=== PATIENT | female | born 1990 | race Caucasian/White ===

== ENCOUNTER → 2016-04-20 | Outpatient (REF) | payer OTHER ==
[~2016-04-20] MED LIST: ACET50TA PO; IBUP-1114 PO; PRENTAB9 PO
== END ==
LOC: M LAB REF 17:03
PROVIDERS: ATTEND Obstetrics & Gynecology
DX: Z12.4 Encounter for screening for malignant neoplasm of cervix (principal)

== ENCOUNTER → 2017-02-17 | Outpatient (REF) | payer BC | LOC: M LAB REF 13:18 | PROVIDERS: ATTEND Physician Assistant | DX: J02.9 Acute pharyngitis, unspecified (principal) ==

== ENCOUNTER → 2017-05-04 | Outpatient (REF) | payer BC | LOC: M LAB REF 16:18 | DX: J11.1 Influenza due to unidentified influenza virus with other respiratory manifestations (principal) ==

== ENCOUNTER → 2017-10-24 | Outpatient (CLI) | payer BC ==
[2017-10-24 18:24] LABS: BASO % 0.4 % (0.0-1.0); EOS # 0.1 10^3/uL (0.0-0.50); EOS % 1.2 % (0.0-3.0); HEMATOCRIT 37.6 % (36.0-47.0); HEMOGLOBIN 12.4 g/dl (12.0-15.5); IMMATURE GRANULOCYTE % 0.4 % (0-3.0); LYMPH # 2.5 10^3/uL (1.5-6.5); LYMPH % 25.7 % (24.0-44.0); MEAN CORPUSCULAR HEMOGLOBIN 29.8 pg (27.0-33.0); MEAN CORPUSCULAR VOLUME 90.4 fl (80.0-96.0); MONO # 0.9 10^3/uL (0.0-0.8); MONO % 9.6 % (0.0-5.0); NEUTROPHILS # 6.2 10^3/uL (1.8-7.7); NEUTROPHILS % 62.7 % (36.0-66.0); PLATELET COUNT, AUTOMATED 276 10^3/uL (150-450); RED BLOOD COUNT 4.16 10^6/uL (4.00-5.40); RED CELL DISTRIBUTION WIDTH 13.1 % (11.5-14.5); WHITE BLOOD COUNT 9.8 10^3/uL (4.0-10.0)
[2017-10-24 19:46] LABS: CHLAMYDIA DNA AMPLIFICATION NEGATIVE (NEGATIVE); GC DNA AMPLIFICATION NEGATIVE (NEGATIVE)
[2017-10-25 09:19] LABS: RUBELLA IgG QUALITATIVE IMMUNE (IMMUNE)
[2017-10-25 09:20] LABS: HBsAg Prenatal NEGATIVE (NEGATIVE)
[2017-10-25 09:46] LABS: HEPATITIS C VIRUS ABY INDEX 0.1 INDEX (<0.8)
[2017-10-25 11:06] LABS: HIV 1&2 SCREEN CENTAUR NEGATIVE (NEGATIVE)
== END ==
LOC: M SMT 15:15
DX: Z36.89 Encounter for other specified antenatal screening (principal); Z3A.08 8 weeks gestation of pregnancy
CPT/HCPCS: 86762

== ENCOUNTER → 2018-01-04 | Outpatient (CLI) | payer BC | LOC: M RAD 10:37 | DX: Z36.9 Encounter for antenatal screening, unspecified (principal); Z3A.18 18 weeks gestation of pregnancy | CPT/HCPCS: 76811 ==

== ENCOUNTER → 2018-01-25 | Outpatient (CLI) | payer BC, MEDICAID | LOC: M RAD 12:18 | DX: Z34.82 Encounter for supervision of other normal pregnancy, second trimester (principal); Z3A.21 21 weeks gestation of pregnancy | CPT/HCPCS: 76816 ==

== ENCOUNTER → 2018-05-04 | Outpatient (REF) | payer BC, MEDICAID ==
[~2018-05-04] MED LIST changes: -ACET50TA PO; +MAPA500T2 PO
== END ==
LOC: M LAB REF 17:05
PROVIDERS: ATTEND Advanced Practice Midwife
DX: Z34.83 Encounter for supervision of other normal pregnancy, third trimester (principal); Z3A.00 Weeks of gestation of pregnancy not specified

== ENCOUNTER → 2018-05-11 | Outpatient (CLI) | payer BC, MEDICAID | LOC: M SMT 14:38 | PROVIDERS: ATTEND Advanced Practice Midwife | DX: Z36.89 Encounter for other specified antenatal screening (principal) ==

== ENCOUNTER → 2018-05-25 | Outpatient (CLI) | payer BC, MEDICAID ==
[~2018-05-25] MED LIST changes: +IBUP80TA PO; +OMEP10CASR PO; +RANI15TA PO; +UNIS25TA3 PO
--- NOTE | 2018-05-25 19:12 | REP ---
FOLLOWUP OB ULTRASOUND: 05/25/2018. Clinical history: Size date discrepancy, third trimester. Comparison: 01/25/2018. Findings: By her initial ultrasound she would be 39 weeks with EDC 06/01/2018. Single intrauterine gestation is in vertex position with a posterior grade 2 placenta without previa or abruption. Subjectively amniotic fluid volume is normal with an index of 12.4 cm with a normal range 7.2 - 22.6. Largest fluid pocket is 4.8 cm. Mid cord umbilical artery Doppler shows S/D ratio 2.36 with normal forward diastolic flow, all normal. Resistive index is 0.58. biometry: BPD 9.4 cm 38 weeks HC 33.5 cm 38 weeks 3 days AC 37.1 cm 41 weeks FL 7.7 cm 39 weeks 3 days Technologist has used only the HC and FL for composite criteria, 38 weeks 1 day with EDC 06/07/2018. Estimated weight 3940 grams or 8 pounds 10 ounces 78th percentile for dating based on initial exam. This is normal interval growth. All measurement ratios are normal. Heart rate 141 and regular. Cranial vault, diaphragm, left-sided stomach bubble, kidneys and bladder and genitalia were seen and unremarkable. Impression: 1. Single intrauterine gestation in vertex presentation with cervix obscured by shadowing from the skull. There is a posterior grade 2 placenta without previa and visually normal amniotic fluid volume and EDWIN 12.4 2. Heart rate 141 and regular, umbilical cord Doppler was unremarkable and size and dates show normal interval growth as described above. Electronically Signed by Keanu Bui MD 05/26/2018 11:59 A
== END ==
LOC: M SMT 10:53
PROVIDERS: ATTEND Advanced Practice Midwife
DX: O26.843 Uterine size-date discrepancy, third trimester (principal); Z3A.38 38 weeks gestation of pregnancy

== ENCOUNTER 2018-05-26 11:45 | Inpatient (IN) | payer BC, MEDICAID ==
[2018-05-26] VITALS (17 sets, daily range): BP systolic 113–149; BP diastolic 65–85
[~2018-05-26] VITALS: Ht 167.6 cm; Wt 102.8 kg
[~2018-05-26 11:45] MED LIST changes: -IBUP80TA PO; -OMEP10CASR PO; -RANI15TA PO; -UNIS25TA3 PO
[2018-05-26] MEDS ORDERED: UNIS25TA3 PO (12:02)
[2018-05-26] MEDS ORDERED: OMEP10CASR PO (12:02)
[2018-05-26] MEDS ORDERED: RANI15TA PO (12:02)
--- NOTE | 2018-05-26 13:09 | NUR ---
L&D H&P HPI: 28 year old at 39+0 weeks estimated gestation. Expected date of confinement: 06/02/2018. dated by LMP consistent with first trimester ultrasound. Presents today for elective induction of labor at 39+0 weeks. Denies vaginal bleeding, loss of fluid, or uterine contractions. Reports regular movement. Obstetric history notable for a difficult second stage of labor, failed operative vaginal delivery via vacuum assistance, followed by with shoulder dystocia at 41 weeks (8 lbs. 10 oz.) labs: Blood type O+, antibody screen negative, rubella immune, VDRL nonreactive , hepatitis B surface antigen negative, HIV negative, hepatitis C antibody negative, GC/CT negative, aneuploidy/maternal serum screening: declined, 1 hour glucose challenge test: 133, 3 hour glucose tolerance test: 94,153,140,122. GBS negative Vaccinations: Tdap 04/19/18 Radiology/OB US: no anomalies or placental abnormalities detected. 05/25/2018, EFW 3940 g 8 lbs. 10 oz. cephalic presentation. 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 10 oz., . See above HPI Social history: No tobacco, alcohol or drug use Family history:. Diabetes, thyroid disease Objective Vitals: Normotensive, normal heart rate, afebrile Heart: Regular rate and rhythm. No murmurs, rubs or gallops. Lungs: Clear to auscultation bilaterally. No wheezes, crackles, rales or rhonchi. Abdomen: Uterine fundal height consistent with dates. No guarding or rebound tenderness. Extremities: No clubbing, cyanosis or edema. Normal deep tendon reflexes. Sterile vaginal exam: 1 cm, 50 %effacement, -3 station, cephalic, intact External monitoring: heart rate category 1 Tocodynamometer: contractions occurring intermittently Assessment/Plan 28 year old at 39+0 weeks gestation. Diagnosis: Elective induction of labor. Full-term gestation, history of shoulder dystocia. Reassuring and maternal status. -Admit to labor and delivery with routine labs and orders -External monitoring and tocodynamometer -Pediatrics and anesthesia consultations as needed. -Risks of elective induction of labor reviewed -Risks of recurrent shoulder dystocia reviewed -Plan is for IOL / . Start with cervical ripening via misoprostol. Dr. Martinez Lazcano, DO, FACOG
[2018-05-26 13:43] LABS: HEMATOCRIT 31.5 % (36.0-47.0); HEMOGLOBIN 9.8 g/dl (12.0-15.5); MEAN CORPUSCULAR HEMOGLOBIN 26.8 pg (27.0-33.0); MEAN CORPUSCULAR HGB CONC 31.1 g/dl (32.0-36.5); MEAN CORPUSCULAR VOLUME 86.1 fl (80.0-96.0); PLATELET COUNT, AUTOMATED 291 10^3/uL (150-450); RED BLOOD COUNT 3.66 10^6/uL (4.00-5.40); WHITE BLOOD COUNT 9.9 10^3/uL (4.0-10.0)
[2018-05-26] MEDS ORDERED: LACTATED RINGER'S 1000 ML IV STA (13:52)
[2018-05-26] MEDS: LR 1,000 ML IV SCH ×2 (14:16→22:55)
[2018-05-26] MEDS: miSOPROStol 50 MCG 1/2 TAB (S0191) SL SCH ×2 (14:16→19:30)
[2018-05-26] MEDS ORDERED: OXYTOCIN DRIP 30 UNITS in APPROPRIATE DILUENT 1 EA IV SCH (19:30)
--- NOTE | 2018-05-26 19:30 | NUR ---
Labor progress note Subjective: Patient starting to feel more uncomfortable with contractions. Contractions are occurring more frequently. Denies any loss of fluid or vaginal bleeding. No complaints of headache, visual changes, nausea, vomiting, shortness of breath or chest pain. Objective: Vitals: Normotensive, normal heart rate, afebrile Sterile vaginal exam:, 1-2 cm, 75% effaced, -3 station, cephalic presentation, intact membranes External monitoring:. heart rate category 1 Tocodynamometer: Contractions are every 2-3 minutes Assessment / Plan: Reassuring maternal and status. -Continue induction with IV Pitocin, low-dose protocol -Repeat sterile vaginal exam in approximately 4 hours or sooner as needed -Will consider Cook balloon if unchanged after this period of time Shellie Jacome.O., F.A.C.O.G
[2018-05-27] VITALS (48 sets, daily range): BP systolic 93–137; BP diastolic 51–82
[2018-05-27] MEDS ORDERED: FENTANYL 2MCG/ML ROPIVACAINE 0.2% IN 0.9% NACL 100ML IVBAG As Ordered ONE (00:24)
[2018-05-27] MEDS: FENTANYL/ROPIVACAINE/NACL BAG 100 ML EPIDURAL SCH ×2 (01:30→09:06)
[2018-05-27] MEDS: FAMOTIDINE 20 MG TAB PO SCH ×2 (02:13→09:07)
[2018-05-27] MEDS ORDERED: diphenhydrAMINE INJ 50MG/ML VIAL (J1200) IV PRN (02:30)
[2018-05-27] MEDS ORDERED: REFRIGERATOR IV KEYS XX PRN (02:30)
[2018-05-27] MEDS ORDERED: EPIDURAL COMMENT XX SCH (02:30)
[2018-05-27] MEDS ORDERED: NALOXONE INJ 0.4 MG/1 ML VIAL (J2310) IV PRN (02:30)
[2018-05-27] MEDS ORDERED: ONDANSETRON 4MG/2ML VIAL (J2405) IV PRN ×2 (02:30→16:15)
[2018-05-27] MEDS ORDERED: EPIDURAL/PCA KEYS XX PRN (02:30)
[2018-05-27] MEDS ORDERED: ePHEDrine SULFATE 25 MG/5 ML(5MG/ML) SYRINGE IV PRN (02:30)
--- NOTE | 2018-05-27 03:44 | NUR ---
Labor progress note Subjective: Patient comfortable with epidural. Denies any loss of fluid or vaginal bleeding. No complaints of headache, visual changes, nausea, vomiting, shortness of breath or chest pain. Objective: Vitals: Normotensive, normal heart rate, afebrile Sterile vaginal exam:, 1-2 cm, 75% effaced, -3 station, cephalic presentation, intact membranes Cook balloon placed (60ml/40ml) External monitoring:. heart rate category 1 Tocodynamometer: Contractions are every 2-3 minutes; pit at 18mU/min Assessment / Plan: Reassuring maternal and status. -Continue induction with IV Pitocin per protocol. -Repeat sterile vaginal exam in approximately 4-6 hours or sooner as needed Jett Lazcano,
[2018-05-27] MEDS: LR 1,000 ML IV SCH ×2 (05:13→12:01)
--- NOTE | 2018-05-27 10:03 | NUR ---
Labor progress note Subjective: Patient comfortable with epidural. Cook balloon spontaneously fell out around 0930. +bloody show, but denies any loss of fluid or heavy vaginal bleeding. No complaints of headache, visual changes, nausea, vomiting, shortness of breath or chest pain. Objective: Vitals: Normotensive, normal heart rate, afebrile Sterile vaginal exam:, 6 cm, 90% effaced, -1 station, cephalic presentation, intact membranes External monitoring:. heart rate category 1 Tocodynamometer: Contractions are every 2-3 minutes; pit at 20 mU/min Assessment / Plan: Active labor. Reassuring maternal and status. -Continue induction with IV Pitocin per protocol. -Repeat sterile vaginal exam in approximately 2-4 hours or sooner as needed -AROM if unchanged after this timeframe. Jett Lazcano, DO
--- NOTE | 2018-05-27 12:41 | NUR ---
Labor progress note Subjective: Patient still overall comfortable with epidural but she's starting to feel rectovaginal pressure. +bloody show, but denies any loss of fluid or heavy vaginal bleeding. No complaints of headache, visual changes, nausea, vomiting, shortness of breath or chest pain. Objective: Vitals: Normotensive, normal heart rate, afebrile Sterile vaginal exam:, 8-9 cm, 100% effaced, 0 station, cephalic presentation AROM, clear External monitoring:. heart rate category 1, short periods of Cat II with intermittent variable decelerations Tocodynamometer: Contractions are every 2-3 minutes; pit at 20 mU/min (shut off) Assessment / Plan: Active labor, approaching second stage of labor. Normal labor progression. Reassuring maternal and status. -Keep Pitocin off for now -Repeat sterile vaginal exam in approximately 1-2 hours or sooner as needed Jett Lazcano, DO
[2018-05-27] MEDS ORDERED: OXYTOCIN 30 UNITS IN 0.9% NaCl 500ML IV BAG (J2590) As Ordered ONE (13:09)
--- NOTE | 2018-05-27 16:09 | NUR ---
Delivery note Spontaneous vaginal delivery Estimated gestational age at delivery: 39+1 weeks The active phase and second stage of labor progressed in normal fashion with epidural anesthesia. Patient received Pitocin labor augmentation. The head delivered left occiput anterior and restituted left occiput transverse. No nuchal cord was noted. The anterior shoulder delivered with gentle downward guidance and the remainder of the body delivered with ease. Cord clamping was delayed for approximately 1 minute after delivery. After doubly clamping the cord, I cut the cord. The was placed on the patient's chest for immediate bonding. Duson data: Apgars 8 and 9. weight 3990 grams 8 pounds, 13 ounces. Time of delivery: 1538. Sex: Female. The third stage of labor was actively managed with a bolus of IV Pitocin (30 units in 500 mL of normal saline). The placenta delivered completely intact with no missing cotyledons at 1543. A three-vessel cord with a central insertion was noted. After delivery of the placenta, the uterine fundus was approximately 2 cm below the umbilicus and firm. IV Pitocin was continued to maintain uterine tone. A normal, low level of uterine bleeding was noted. The cervix, vagina, vulva and perineum were inspected for lacerations. A second degree laceration was noted. This was repaired with 3-0 Vicryl in typical fashion. Excellent hemostasis was noted. Estimated blood loss: 300ml. All sponges, needles, and instruments were accounted for per VEHICLE COST ENGINEER department protocol. Martinez Lazcano D.O., F.Brent.Adarsh.
[2018-05-27] MEDS ORDERED: OXYTOCIN DRIP 30 UNITS in APPROPRIATE DILUENT 1 EA IV SCH (16:15)
[2018-05-27] MEDS ORDERED: MEASLES,MUMPS,RUBELLA VACCINE INJ (MMR-II) (90707) SC SCH (16:15)
[2018-05-27] MEDS ORDERED: DOCUSATE SODIUM 100 MG CAP PO PRN (16:15)
[2018-05-27] MEDS ORDERED: DIBUCAINE 1% OINTMENT 30GM TOP PRN (16:15)
[2018-05-27] MEDS ORDERED: RHOGAM 300 MCG (1500 IU) INJ (J2790) IM SCH (16:15)
[2018-05-27] MEDS ORDERED: PROMETHAZINE 25 MG TAB PO PRN (16:15)
[2018-05-27] MEDS ORDERED: LR 1,000 ML IV SCH (16:15)
[2018-05-27] MEDS ORDERED: IBUP80TA PO (16:26)
[2018-05-27] MEDS: IBUPROFEN 800 MG TAB PO PRN (17:38)
[2018-05-27] MEDS ORDERED: INFLUENZA QUADRIVALENT PF VACCINE 0.5ML SYRINGE (90686) IM PRN (18:45)
[2018-05-27] MEDS: ACETAMINOPHEN 500 MG TAB PO PRN (19:28)
[2018-05-28] MEDS: IBUPROFEN 800 MG TAB PO PRN ×2 (01:06→13:17)
[2018-05-28 06:05] VITALS: BP 105/60
[2018-05-28] MEDS: ACETAMINOPHEN 500 MG TAB PO PRN (07:44)
[2018-05-28] MEDS ORDERED: PRENATAL VITAMINS CHEWABLE TABLET PO SCH (09:00)
== END 2018-05-28 14:15 | disposition home or self-care (01) | DRG 560 ==
LOC: M LDI 11:45 → M OBS 05-27 17:47
PROVIDERS: ADMIT Obstetrics & Gynecology; ATTEND Obstetrics & Gynecology
PROC: 10E0XZZ Delivery of Products of Conception, External Approach (ICD-10-PCS; principal; 2018-05-27)
PROC: 0KQM0ZZ Repair Perineum Muscle, Open Approach (ICD-10-PCS; 2018-05-27)
DX: O70.1 Second degree perineal laceration during delivery (principal); Z37.0 Single live birth; Z3A.39 39 weeks gestation of pregnancy

== ENCOUNTER → 2018-08-21 | Outpatient (REF) | payer BC, MEDICAID ==
[~2018-08-21] MED LIST changes: +IBUP80TA PO; +OMEP10CASR PO; +RANI15TA PO; +UNIS25TA3 PO
== END ==
LOC: M LAB REF 13:21
PROVIDERS: ATTEND Obstetrics & Gynecology
DX: Z12.4 Encounter for screening for malignant neoplasm of cervix (principal)

== ENCOUNTER → 2018-08-27 | Outpatient (CLI) | payer BC, MEDICAID ==
[~2018-08-27] MED LIST changes: +MIRE1IUD IU
== END ==
LOC: M SMT 08:48
PROVIDERS: ATTEND Obstetrics & Gynecology
DX: Z13.79 Encounter for other screening for genetic and chromosomal anomalies (principal)

== ENCOUNTER 2018-08-28 03:59 | Emergency (ER) | payer BC, MEDICAID ==
[~2018-08-28] VITALS: Ht 167.6 cm; Wt 90.9 kg
[2018-08-28 03:59] VITALS: BP 141/77
[~2018-08-28 03:59] MED LIST changes: -MIRE1IUD IU
[2018-08-28] MEDS ORDERED: MIRE1IUD IU (04:07)
[2018-08-28 04:50] LABS: BASO # 0.1 10^3/uL (0.0-0.2); BASO % 0.8 % (0.0-1.0); EOS # 0.3 10^3/uL (0.0-0.50); EOS % 4.1 % (0.0-3.0); HEMATOCRIT 33.9 % (36.0-47.0); HEMOGLOBIN 10.8 g/dl (12.0-15.5); LYMPH # 2.7 10^3/uL (1.5-6.5); LYMPH % 40.7 % (24.0-44.0); MEAN CORPUSCULAR HEMOGLOBIN 27.8 pg (27.0-33.0); MEAN CORPUSCULAR HGB CONC 31.9 g/dl (32.0-36.5); MEAN CORPUSCULAR VOLUME 87.1 fl (80.0-96.0); MONO # 0.6 10^3/uL (0.0-0.8); MONO % 9.1 % (0.0-5.0); NEUTROPHILS # 2.9 10^3/uL (1.8-7.7); NEUTROPHILS % 45.1 % (36.0-66.0); PLATELET COUNT, AUTOMATED 230 10^3/uL (150-450); RED BLOOD COUNT 3.89 10^6/uL (4.00-5.40); WHITE BLOOD COUNT 6.5 10^3/uL (4.0-10.0)
[2018-08-28 04:59] LABS: INR 0.97
[2018-08-28 05:20] LABS: ALBUMIN 3.5 GM/DL (3.2-5.2); ALT/SGPT 31 U/L (12-78); BILIRUBIN,TOTAL 0.5 MG/DL (0.2-1.0); BLOOD UREA NITROGEN 14 MG/DL (7-18); CALCIUM LEVEL 8.5 MG/DL (8.5-10.1); CARBON DIOXIDE LEVEL 27 MEQ/L (21-32); CHLORIDE LEVEL 109 MEQ/L (98-107); CK-MB VALUE MASS < 1.0 NG/ML (<3.6); CPK CREATINE PHOSPHOKINASE 70 U/L (26-192); CREATININE FOR GFR 0.89 MG/DL (0.55-1.30); GLOMERULAR FILTRATION RATE > 60.0 (>60); GLUCOSE, FASTING 101 MG/DL (70-100); LIPASE 139 U/L (73-393); MB/CK RELATIVE INDEX 1.43 (< OR =4); POTASSIUM SERUM 4.2 MEQ/L (3.5-5.1); SODIUM LEVEL 141 MEQ/L (136-145); TROPONIN I < 0.02 NG/ML (< 0.10)
--- NOTE | 2018-08-28 06:07 | ECGEPIP ---
[facility] - ED Test Date: 2018-08-28 Pat Name: JOHN VELÁSQUEZ Department: Room: - Gender: Female Messenger Floorperson: : 1990 Requested By: TIM Hensley Order Number: [id number] Reading MD: Tacho Chavarria Measurements Intervals [place] Rate: 63 P: 50 NH: 138 QRS: 35 QRSD: 96 T: 27 QT: 416 QTc: 428 Interpretive Statements SINUS RHYTHM INCOMPLETE RIGHT BUNDLE BRANCH BLOCK NO PRIORS FOR COMPARISON Electronically Signed on 08-28-2018 6:07:06 EDT by Tacho Chavarria
--- NOTE | 2018-08-28 07:55 | REP ---
PA and lateral chest: There are no comparisons. The lung barrientos are clear. The cardiac size is normal. The laverne, mediastinum, and skeletal structures are unremarkable. Impression: Negative PA and lateral chest. Electronically Signed by Cristian Call MD 08/28/2018 07:46 A
== END 2018-08-28 07:34 | disposition left against medical advice (07) ==
LOC: M ED 03:59
DX: R07.9 Chest pain, unspecified (principal); I45.19 Other right bundle-branch block; Z53.21 Procedure and treatment not carried out due to patient leaving prior to being seen by health care provider

== ENCOUNTER → 2018-10-08 | Outpatient (CLI) | payer BC, MEDICAID ==
[~2018-10-08] MED LIST changes: +E-Z-GAS II EFFERVESCENT PACKET (SODIUM BICARB./CITRIC ACID/SIMETHICONE) As Ordered ONE; +E-Z-HD 98% w/w 340GM SUSP BTL As Ordered ONE; +E-Z-PAQUE 96% w/w SUSP 176GM BTL As Ordered ONE; +MIRE1IUD IU
--- NOTE | 2018-10-09 13:22 | REP ---
Upper GI air contrast The procedure was performed under the direct supervision of Dr. Call. The images were reviewed with Dr. Call The meat team lead film shows no organomegaly or pathological masses. The intestinal gas pattern is non-specific. There is an IUD in place. Liquid barium and gas producing crystals were given in the erect position as well as liquid barium in the prone oblique position in order to perform a double contrast upper GI examination. The oral and pharyngeal stages of deglutition are unremarkable. Esophageal transport is prompt and efficient and there is no esophagitis, stricture, mucosal ring or hiatal hernia. Gastroesophageal reflux is not demonstrated on this examination. Within the stomach there are multiple sub centimeter polyps identified. The stomach is otherwise normal in appearance. In the duodenum there are prominent mucosal folds which may represent duodenitis. There is no mikayla ulcer identified. The visualized portion of the proximal small bowel appears normal in course and caliber. Impression: 1. There are prominent folds in the duodenum which may represent duodenitis. There is no mikayla ulcer identified. 2. There are multiple sub centimeter polyps within the stomach. 1.6 minutes of fluoro time was utilized for this procedure. Reviewed by EMILY Gold 10/08/2018 05:38 P Electronically Signed by Cristian Call MD 10/09/2018 01:12 P
== END ==
LOC: M RAD 08:09
PROVIDERS: ATTEND Nurse Practitioner Family
DX: R13.10 Dysphagia, unspecified (principal)

== ENCOUNTER → 2018-10-15 | Outpatient (REF) | payer BC, MEDICAID ==
[~2018-10-15] MED LIST changes: -E-Z-GAS II EFFERVESCENT PACKET (SODIUM BICARB./CITRIC ACID/SIMETHICONE) As Ordered ONE; -E-Z-HD 98% w/w 340GM SUSP BTL As Ordered ONE; -E-Z-PAQUE 96% w/w SUSP 176GM BTL As Ordered ONE
== END ==
LOC: M WUC 09:14
PROVIDERS: ATTEND Physician Assistant
DX: R10.30 Lower abdominal pain, unspecified (principal)

== ENCOUNTER → 2018-10-18 | Outpatient (CLI) | payer BC, MEDICAID ==
[~2018-10-18] MED LIST changes: +LILL1TAB PO; +OMEP40CA97 PO; +PEPC1TAB5 PO; +VITA50005 PO
--- NOTE | 2018-10-19 02:40 | REP ---
Clinical: Lower abdominal pain. Technique: Transabdominal pelvic ultrasound followed by transvaginal examination for better evaluation of the endometrium and adnexa with color Doppler evaluation of the ovaries. Findings: Bladder is normal and measures 10.5 x 7.3 x 8.3 cm. Heterogeneous anteverted uterus measures 8.3 x 4.1 x 4.8 cm. IUD identified in satisfactory position. Endometrial complex measures 5.1 mm thickness. No discrete uterine or endometrial abnormality appreciated. Bilateral ovaries are normal in vascularity without torsion. Right ovary measures 3.0 x 2.7 x 2.7 cm (RI 0.46) and includes 2.4 x 1.9 x 2.0 cm complex likely hemorrhagic physiologic cyst. Left ovary measures 2.6 x 1.3 x 1.8 cm (RI 0.52). Small amount of free fluid noted in the right adnexa. Impression: Normal uterus and left ovary. Right ovarian cyst likely physiologic. Consider reevaluation in 4-6 weeks to evaluate for resolution. Electronically Signed by Fredo Mason MD 10/19/2018 02:31 A
== END ==
LOC: M RAD 16:19
PROVIDERS: ATTEND Physician Assistant
DX: N83.291 Other ovarian cyst, right side (principal)

== ENCOUNTER → 2018-10-30 | Outpatient (CLI) | payer BC, MEDICAID ==
[~2018-10-30] MED LIST changes: -LILL1TAB PO; -OMEP40CA97 PO; -PEPC1TAB5 PO; -VITA50005 PO
[2018-10-30 10:12] LABS: ALBUMIN 3.9 GM/DL (3.2-5.2); ALT/SGPT 19 U/L (12-78); BILIRUBIN,TOTAL 0.4 MG/DL (0.2-1.0); BLOOD UREA NITROGEN 19 MG/DL (7-18); CALCIUM LEVEL 9.3 MG/DL (8.5-10.1); CARBON DIOXIDE LEVEL 26 MEQ/L (21-32); CHLORIDE LEVEL 109 MEQ/L (98-107); CHOLESTEROL LEVEL 178 MG/DL (<200); CHOLESTEROL RISK RATIO 4.684 (<5); FREE T4 0.98 NG/DL (0.76-1.46); GLOMERULAR FILTRATION RATE > 60.0 (>60); GLUCOSE, FASTING 85 MG/DL (70-100); HDL CHOLESTEROL 38 MG/DL (>40); LDL CHOLESTEROL 95 MG/DL (<100); NON-HDL-C 140 MG/DL; POTASSIUM SERUM 4.3 MEQ/L (3.5-5.1); SODIUM LEVEL 142 MEQ/L (136-145); THYROID STIMULATING HORMONE 0.912 uIU/ML (0.358-3.740); TOTAL PROTEIN 7.4 GM/DL (6.4-8.2); TRIGLYCERIDES LEVEL 224 MG/DL (<150)
[2018-10-30 10:15] LABS: TOTAL 25(OH) VITAMIN D 23.2 NG/ML (30.0-100.0)
[2018-10-30 10:28] LABS: HEMOGLOBIN A1c 5.6 %
== END ==
LOC: M WUC 08:11
PROVIDERS: ATTEND Nurse Practitioner Family
DX: Z83.3 Family history of diabetes mellitus (principal); R13.10 Dysphagia, unspecified; E66.9 Obesity, unspecified

== ENCOUNTER → 2018-11-19 | Outpatient (REF) | payer BC, MEDICAID | LOC: M LAB REF 19:16 | PROVIDERS: ATTEND Obstetrics & Gynecology | DX: R87.612 Low grade squamous intraepithelial lesion on cytologic smear of cervix (LGSIL) (principal) ==

== ENCOUNTER 2018-12-25 13:14 | Day surgery (SDC) | payer BC, MEDICAID ==
[~2018-12-25] VITALS: Ht 167.6 cm; Wt 90.6 kg
[~2018-12-25 13:14] MED LIST changes: +LILL1TAB PO; +VITA50005 PO
[2018-12-25] MEDS ORDERED: NS 1,000 ML IV ONE (13:45)
[2018-12-25] MEDS ORDERED: PROPOFOL 200 MG/20 ML VIAL As Ordered ONE ×2 (14:31→14:32)
[2018-12-25] MEDS ORDERED: LIDOCAINE 2% INJ 100 MG/5 ML SDV (FOR ANES.) As Ordered ONE (14:31)
[2018-12-25 14:50] VITALS: BP 138/79
--- NOTE | 2018-12-25 14:53 | ROOR ---
Patient Name: Jessica Orellana Procedure Date: 12/25/2018 2:22 PM Date of : 1990 Age: 28 Room: [facility] Gender: Female Note Status: Finalized Procedure: Upper GI endoscopy Indications: Dyspepsia, Suspected gastro-esophageal reflux disease, Abnormal UGI series Providers: Rl Galarza MD Referring MD: Francheska Ireland NP Requesting Provider: Medicines: Monitored Anesthesia Care Complications: No immediate complications. Procedure: Pre-Anesthesia Assessment: - Prior to the procedure, a History and Physical was performed, and patient medications and allergies were reviewed. The patient is competent. The risks and benefits of the procedure and the sedation options and risks were discussed with the patient. All questions were answered and informed consent was obtained. Patient identification and proposed procedure were verified by the physician, the nurse and the anesthesiologist in the procedure room. Mental Status Examination: alert and oriented. Airway Examination: normal oropharyngeal airway and neck mobility. Respiratory Examination: clear to auscultation. CV Examination: normal. Prophylactic Antibiotics: The patient does not require prophylactic antibiotics. Prior Anticoagulants: The patient has taken no previous anticoagulant or antiplatelet agents. ASA Grade Assessment: II - A patient with mild systemic disease. After reviewing the risks and benefits, the patient was deemed in satisfactory condition to undergo the procedure. The anesthesia plan was to use monitored anesthesia care (MAC). Immediately prior to administration of medications, the patient was re-assessed for adequacy to receive sedatives. The heart rate, respiratory rate, oxygen saturations, blood pressure, adequacy of pulmonary ventilation, and response to care were monitored throughout the procedure. The physical status of the patient was re-assessed after the procedure. The Endoscope was introduced through the mouth, and advanced to the second part of duodenum. The upper GI endoscopy was accomplished without difficulty. The patient tolerated the procedure well. Findings: The examined esophagus was normal. The Z-line was regular and was found 40 cm from the incisors. Patchy minimal inflammation characterized by erythema and granularity was found in the gastric antrum. Biopsies were taken with a cold forceps for Helicobacter pylori testing. Verification of patient identification for the specimen was done by the physician and nurse using the patient's name, date and medical record number. Estimated blood loss was minimal. The duodenal bulb and second portion of the duodenum were normal. Biopsies for histology were taken with a cold forceps for evaluation of celiac disease. Impression: - Normal esophagus. - Z-line regular, 40 cm from the incisors. - Gastritis. Biopsied. - Normal duodenal bulb and second portion of the duodenum. Biopsied. Recommendation: - Patient has a contact number available for emergencies. The signs and symptoms of potential delayed complications were discussed with the patient. Return to normal activities tomorrow. Written discharge instructions were provided to the patient. - Resume regular diet. - Continue present medications. - Follow an antireflux regimen. - Await pathology results. - Telephone GI clinic for pathology results in 2 weeks. - Return to primary care physician. Rl Galarza MD Rl Galarza MD 12/25/2018 2:52:39 PM Electronically signed by Rl Galarza MD Number of Addenda: 0 Note Initiated On: 12/25/2018 2:22 PM Estimated Blood Loss: Estimated blood loss was minimal.
== END 2018-12-25 15:15 | disposition home or self-care (01) ==
LOC: M OPP 13:14
PROVIDERS: ATTEND Internal Medicine Gastroenterology
DX: K29.70 Gastritis, unspecified, without bleeding (principal); R10.13 Epigastric pain; R93.3 Abnormal findings on diagnostic imaging of other parts of digestive tract; Z79.899 Other long term (current) drug therapy

== ENCOUNTER 2019-01-18 10:20 | Day surgery (SDC) | payer BC, MEDICAID ==
[~2019-01-18] VITALS: Ht 167.6 cm; Wt 88.9 kg
[~2019-01-18 10:20] MED LIST changes: +LIDOCAINE 1% MDV 20ML VIAL SQ PRN; +LR 1,000 ML IV ONE; +OMEP40CA97 PO; +PEPC1TAB5 PO
[2019-01-18 10:59] LABS: HEMATOCRIT 38.1 % (36.0-47.0); HEMOGLOBIN 12.2 g/dl (12.0-15.5); MEAN CORPUSCULAR HEMOGLOBIN 27.8 pg (27.0-33.0); MEAN CORPUSCULAR VOLUME 86.8 fl (80.0-96.0); PLATELET COUNT, AUTOMATED 256 10^3/uL (150-450); RED BLOOD COUNT 4.39 10^6/uL (4.00-5.40); WHITE BLOOD COUNT 6.3 10^3/uL (4.0-10.0)
[2019-01-18 11:28] LABS: HCG, SERUM QUALITATIVE NEGATIVE (NEGATIVE)
[2019-01-18] MEDS ORDERED: PROPOFOL 200 MG/20 ML VIAL As Ordered ONE (11:58)
[2019-01-18] MEDS ORDERED: LIDOCAINE 2% INJ 100 MG/5 ML SDV (FOR ANES.) As Ordered ONE (11:58)
[2019-01-18] MEDS ORDERED: fentaNYL 100 MCG/2 ML INJECTION (J3010) As Ordered ONE (11:58)
[2019-01-18] MEDS ORDERED: MIDAZOLAM INJ 2 MG/2 ML VIAL (J2250) As Ordered ONE (11:58)
[2019-01-18] MEDS ORDERED: dexameTHASONE 4 MG/ML 1ML VIAL (J1100) As Ordered ONE ×2 (11:58→13:10)
[2019-01-18] MEDS ORDERED: ONDANSETRON 4MG/2ML VIAL (J2405) As Ordered ONE (11:58)
[2019-01-18] MEDS ORDERED: SILVER NITRATE APPLICATOR As Ordered ONE (12:15)
[2019-01-18] MEDS ORDERED: LIDOCAINE W/EPINEPHRINE 1% 20ML VIAL As Ordered ONE (12:16)
[2019-01-18] MEDS ORDERED: IODINE STRONG SOLN 15 ML BTL As Ordered ONE (12:40)
[2019-01-18] MEDS ORDERED: ACETAMINOPHEN 1000MG 100ML IV BTL (OFIRMEV) (J0131 PER 10MG) As Ordered ONE (12:57)
[2019-01-18] MEDS ORDERED: KETOROLAC 60 MG/2 ML VIAL (J1885) As Ordered ONE (12:57)
[2019-01-18] MEDS ORDERED: METOCLOPRAMIDE INJ 10MG/2ML VIAL (J2765) IV PRN (13:45)
[2019-01-18] MEDS ORDERED: fentaNYL 100 MCG/2 ML INJECTION (J3010) IV PRN (13:45)
[2019-01-18] MEDS ORDERED: oxyCODONE 5MG TAB PO PRN (13:45)
[2019-01-18] MEDS ORDERED: LR 1,000 ML IV SCH ×2 (13:45)
[2019-01-18] MEDS ORDERED: ONDANSETRON 4MG/2ML VIAL (J2405) IV PRN (13:45)
[2019-01-18] MEDS ORDERED: HYDROMORPHONE HCL 0.5 MG/ 0.5 ML SYRINGE (J1170 PER 1) IV PRN (13:45)
[2019-01-18 14:35] VITALS: BP 124/77
--- NOTE | 2019-01-18 17:06 | RO ---
DATE OF PROCEDURE: 01/18/2019 PREOPERATIVE DIAGNOSIS: RETA 2, high-grade dysplasia. POSTOPERATIVE DIAGNOSIS: RETA 2, high-grade dysplasia. PROCEDURE PERFORMED: Loop electrosurgical excision procedure (LEEP). SURGEON: Martinez Lazcano DO BUFFING LINE SET UP WORKER: None. ANESTHESIA TYPE: General via LMA. SPECIMENS TO PATHOLOGY: Cervical cone specimen involving the ecto and endocervix, excised intact and tagged at 12 o'clock with suture. ESTIMATED BLOOD LOSS: 50 mL. FLUIDS REPLACED: 700 mL lactated Ringer's. DRAINS: In and out catheter, 25 mL COMPLICATIONS: None. PREOPERATIVE ANTIBIOTICS: None indicated. INTRAOPERATIVE FINDINGS: Dysplasia at 6 o'clock after Lugol's solution was applied, nulliparous stenotic appearing cervical os. INDICATION: A 28-year-old with a history of recent RETA 2/high-grade dysplasia. She has elected to proceed with LEEP under anesthesia. DESCRIPTION OF PROCEDURE: The patient was counseled and consented on the risks, benefits, indications, and alternative of the procedure. Informed consent was obtained. She was taken to the operating room with an IV running and placed on the operating table in the dorsal supine position. General anesthesia was administered, and the airway secured without any difficulty. She was placed in the high lithotomy position. She was prepared and draped in a normal sterile fashion. A time-out was performed per protocol. The bladder was drained with sterile in and out catheter. The coated speculum was placed with good visualization of the cervix. Lugol's solution was placed over the cervix with the findings noted above. Size 20 x 10 mm loop was used to perform the LEEP procedure. The LEEP cone specimen was excised in a posterior to anterior fashion. The cervical cone specimen was taken out fully intact. The specimen was tagged at 12 with suture. The remaining cervix that was bleeding was cauterized with roller ball cautery until excellent hemostasis was achieved. Excellent hemostasis was ensured with application of Monsel's solution. Excellent hemostasis was again noted after application of Monsel's solution. The sterile speculum was removed. All instruments were removed from the vagina. Sponge, needle and instrument counts were correct per protocol. The patient tolerated the entire procedure very well. She was transferred to the post-anesthesia care unit (PACU) in good and stable condition. [facility]OSPITAL[facility]ie
== END 2019-01-18 14:45 | disposition home or self-care (01) ==
LOC: M SDC 10:20
PROVIDERS: ATTEND Obstetrics & Gynecology
DX: N87.1 Moderate cervical dysplasia (principal); K21.9 Gastro-esophageal reflux disease without esophagitis; Z79.3 Long term (current) use of hormonal contraceptives
CPT/HCPCS: 36415; 57461; 84703; 85027; 86850; 86900; 86901; 88307; J0131; J1100; J1885; J2250; J2405; J3010

== ENCOUNTER → 2019-02-18 | Outpatient (CLI) | payer BC, MEDICAID ==
[~2019-02-18] MED LIST changes: -LIDOCAINE 1% MDV 20ML VIAL SQ PRN; -LR 1,000 ML IV ONE
[2019-02-18 09:55] LABS: CHOLESTEROL RISK RATIO 4.142 (<5)
[2019-02-18 10:42] LABS: HEMOGLOBIN A1c 5.3 %
[2019-02-18 13:12] LABS: TOTAL 25(OH) VITAMIN D 57.4 NG/ML (30.0-100.0)
== END ==
LOC: M WUC 08:22
PROVIDERS: ATTEND Nurse Practitioner Family
DX: E88.81 Metabolic syndrome and other insulin resistance (principal); E55.9 Vitamin D deficiency, unspecified

== ENCOUNTER → 2020-01-13 | Outpatient (REF) | payer MEDICAID | LOC: M SFHCWAGY 12:48 | PROVIDERS: ATTEND Obstetrics & Gynecology | DX: Z12.4 Encounter for screening for malignant neoplasm of cervix (principal) ==

== ENCOUNTER → 2021-04-15 | Outpatient (CLI) | payer MEDICAID ==
[~2021-04-15] MED LIST changes: +OMEP40CA4 PO; -OMEP40CA97 PO
== END ==
LOC: M WHC 09:00
PROVIDERS: ATTEND Nurse Practitioner Family
DX: N64.4 Mastodynia (principal)

== ENCOUNTER → 2021-07-30 | Outpatient (CLI) | payer OTHER | LOC: M WHC 12:53 | PROVIDERS: ATTEND Surgery | DX: R07.89 Other chest pain (principal); Z91.89 Other specified personal risk factors, not elsewhere classified; N64.4 Mastodynia | CPT/HCPCS: 76642; 77066; G0279 ==

== ENCOUNTER → 2022-03-31 | Outpatient (CLI) | payer OTHER ==
[~2022-03-31] MED LIST changes: +PROHANCE 279.3MG/ML 15ML VIAL ONE
== END ==
LOC: M PLAIMG 10:19
PROVIDERS: ATTEND Surgery
DX: Z12.31 Encounter for screening mammogram for malignant neoplasm of breast (principal); Z80.3 Family history of malignant neoplasm of breast
CPT/HCPCS: 77049; A9576

== ENCOUNTER → 2022-05-16 | Outpatient (REF) | payer OTHER ==
[~2022-05-16] MED LIST changes: -PROHANCE 279.3MG/ML 15ML VIAL ONE
== END ==
LOC: M SFHCWAGY 17:23
PROVIDERS: ATTEND Obstetrics & Gynecology
DX: Z12.4 Encounter for screening for malignant neoplasm of cervix (principal)

== ENCOUNTER 2023-11-06 18:12 | Emergency (ER) | payer BC, OTHER, SELFPAY ==
[~2023-11-06] VITALS: Ht 165.1 cm; Wt 87.8 kg
[2023-11-06] MEDS ORDERED: CLAR5TAB11 PO (18:21)
[2023-11-06 19:56] LABS: BASO # 0.1 10^3/uL (0.0-0.2); BASO % 0.7 % (0.0-1.0); EOS # 0.3 10^3/uL (0.0-0.5); EOS % 3.2 % (0.0-3.0); HEMATOCRIT 38.3 % (36.0-47.0); HEMOGLOBIN 12.9 g/dl (12.0-15.5); LYMPH # 3.3 10^3/uL (1.5-5.0); LYMPH % 33.8 % (24.0-44.0); MEAN CORPUSCULAR HEMOGLOBIN 31.5 pg (27.0-33.0); MEAN CORPUSCULAR HGB CONC 33.7 g/dl (32.0-36.5); MEAN CORPUSCULAR VOLUME 93.4 fl (80.0-96.0); MONO # 0.9 10^3/uL (0.0-0.8); MONO % 9.2 % (2.0-8.0); NEUTROPHILS # 5.2 10^3/uL (1.5-8.5); NEUTROPHILS % 52.9 % (36.0-66.0); PLATELET COUNT, AUTOMATED 233 10^3/uL (150-450); WHITE BLOOD COUNT 9.8 10^3/uL (4.0-10.0)
[2023-11-06 20:27] LABS: LIPASE 26 U/L (12-53)
[2023-11-06 20:28] LABS: HCG, SERUM QUALITATIVE NEGATIVE (NEGATIVE)
[2023-11-06 20:29] LABS: ALBUMIN 3.9 G/DL (3.2-5.2); ALKALINE PHOSPHATASE 96 U/L (46-116); ALT/SGPT 25 U/L (7.0-40); AST/SGOT 15 U/L (<34); BILIRUBIN,DIRECT < 0.1 MG/DL (<0.4); BILIRUBIN,TOTAL 0.4 MG/DL (0.3-1.2); BLOOD UREA NITROGEN 9 MG/DL (9-23); CALCIUM LEVEL 9.3 MG/DL (8.5-10.1); CARBON DIOXIDE LEVEL 25 MMOL/L (20-31); CHLORIDE LEVEL 108 MMOL/L (98-107); CREATININE FOR GFR 0.73 MG/DL (0.55-1.30); GLOMERULAR FILTRATION RATE > 60.0 (>60); GLUCOSE, FASTING 97 MG/DL (60-100); POTASSIUM SERUM 3.7 MMOL/L (3.5-5.1); SODIUM LEVEL 138 MMOL/L (136-145); TOTAL PROTEIN 7.5 G/DL (5.7-8.2)
[2023-11-06 22:22] VITALS: BP 134/86; TEMP 99.3; O2SAT 100
== END 2023-11-06 22:21 | disposition home or self-care (01) ==
LOC: M ED 18:12
DX: N83.209 Unspecified ovarian cyst, unspecified side (principal); Z79.3 Long term (current) use of hormonal contraceptives; Z79.899 Other long term (current) drug therapy

== ENCOUNTER → 2024-06-27 | Outpatient (CLI) | payer OTHER ==
[~2024-06-27] MED LIST changes: +CLAR5TAB11 PO
[2024-06-27 11:44] LABS: BASO # 0.1 10^3/uL (0.0-0.2); BASO % 0.7 % (0.0-1.0); EOS # 0.2 10^3/uL (0.0-0.5); EOS % 2.2 % (0.0-3.0); HEMATOCRIT 38.8 % (36.0-47.0); HEMOGLOBIN 12.6 g/dl (12.0-15.5); LYMPH # 2.4 10^3/uL (1.5-5.0); LYMPH % 25.7 % (24.0-44.0); MEAN CORPUSCULAR HEMOGLOBIN 30.2 pg (27.0-33.0); MEAN CORPUSCULAR HGB CONC 32.5 g/dl (32.0-36.5); MONO # 0.7 10^3/uL (0.0-0.8); MONO % 7.3 % (2.0-8.0); NEUTROPHILS % 63.6 % (36.0-66.0); PLATELET COUNT, AUTOMATED 261 10^3/uL (150-450); RED BLOOD COUNT 4.17 10^6/uL (4.00-5.40); WHITE BLOOD COUNT 9.4 10^3/uL (4.0-10.0)
[2024-06-27 11:55] LABS: THYROID STIMULATING HORMONE 0.953 uIU/ML (0.55-4.78)
[2024-06-27 12:02] LABS: ALBUMIN 3.5 G/DL (3.2-5.2); ALKALINE PHOSPHATASE 80 U/L (35-104); ALT/SGPT 28 U/L (7.0-40); AST/SGOT 18 U/L (<34); BILIRUBIN,TOTAL 0.5 MG/DL (0.3-1.2); BLOOD UREA NITROGEN 12 MG/DL (9-23); CALCIUM LEVEL 9.4 MG/DL (8.5-10.1); CARBON DIOXIDE LEVEL 25 MMOL/L (20-31); CHLORIDE LEVEL 105 MMOL/L (98-107); CHOLESTEROL LEVEL 156 MG/DL (<200); CHOLESTEROL RISK RATIO 3.18 (<5); CREATININE FOR GFR 0.77 MG/DL (0.55-1.30); GLOMERULAR FILTRATION RATE > 90.0 (>60); GLUCOSE, FASTING 91 MG/DL (60-100); LDL CHOLESTEROL 61.8 MG/DL (<100); POTASSIUM SERUM 4.9 MMOL/L (3.5-5.1); SODIUM LEVEL 137 MMOL/L (136-145); TOTAL PROTEIN 7.2 G/DL (5.7-8.2); TRIGLYCERIDES LEVEL 226 MG/DL (<150)
[2024-06-27 12:03] LABS: FREE T4 1.25 NG/DL (0.89-1.76)
[2024-06-27 12:04] LABS: TOTAL 25(OH) VITAMIN D 41.4 NG/ML (20.0-100.0)
== END ==
LOC: M PLALAB 08:34
PROVIDERS: ATTEND Nurse Practitioner Family
DX: Z00.00 Encounter for general adult medical examination without abnormal findings (principal)

== ENCOUNTER → 2024-11-12 | Outpatient (REF) | payer OTHER | LOC: M SFHCWAGY 15:38 | PROVIDERS: ATTEND Obstetrics & Gynecology | DX: Z12.4 Encounter for screening for malignant neoplasm of cervix (principal); R87.610 Atypical squamous cells of undetermined significance on cytologic smear of cervix (ASC-US) ==

== ENCOUNTER → 2025-02-28 | Outpatient (REF) | payer OTHER | LOC: M PLALAB 10:32 | PROVIDERS: ATTEND Obstetrics & Gynecology | DX: R87.612 Low grade squamous intraepithelial lesion on cytologic smear of cervix (LGSIL) (principal) ==